=== PATIENT | male | born 1950 | race Caucasian/White ===

== ENCOUNTER 2017-02-02 12:13 | Emergency (ER) | payer BC, MEDICARE ==
[2017-02-02 12:24] VITALS: TEMP 97.8
--- NOTE | 2017-02-02 14:32 | C.PDOC ---
History Of Present Illness Patient is a 66 y/o male who presents to the ED with his with complaint of intermittent dizziness associated with nausea but no vomiting since last . Patient notes dizziness worsened upon awakening this morning, prompting ED visit. Patient admits to experiencing similar symptoms in the past ; patient has a PMHx of HTN, stroke, and NE and a PSHx of a cardiac stent. Patient notes dizziness is a sense of spinning and movement and worsens with head movement and bending over. Patient denies any abdominal pain, but admits patient was complaining of said pain. Patient has been eating and drinking normally. Denies any fever, URI symptoms, tinnitus, visual changes, CP , SOB, or palpitations. No other physical complaints at this time. Time Seen by Provider: 02/02/17 13:49 Chief Complaint (Nursing): Abdominal Pain History Per: Patient Onset/Duration Of Symptoms: Days (since last ) Current Symptoms Are (Timing): Still Present Associated Symptoms: Nausea. denies: Fever, Vomiting Exacerbating Factors: Movement (of head), Other (bending over) Recent travel outside of the [place]: No Past Medical History Reviewed: Historical Data, Nursing Documentation, Vital Signs Vital Signs: Last Vital Signs Temp 97.8 F 02/02/17 12:21 Pulse 58 L 02/02/17 15:20 Resp 18 02/02/17 15:20 BP 126/94 H 02/02/17 15:20 Pulse Ox 97 02/02/17 16:24 - Medical History PMH: CVA (stroke x3), HTN, Hyperlipidemia Denies: Diabetes Surgical History: Coronary Stent (Dr. Hines, in 2004.) Family History: States: No Known Family Hx - Social History Hx Alcohol Use: No Hx Substance Use: No - Immunization History Hx Tetanus Toxoid Vaccination: No Hx Influenza Vaccination: Yes Hx Pneumococcal Vaccination: No Review Of Systems Constitutional: Negative for: Fever, Chills Eyes: Negative for: Vision Change ENT: Negative for: Ear Pain Cardiovascular: Negative for: Chest Pain, Palpitations Respiratory: Negative for: Shortness of Breath Gastrointestinal: Positive for: Nausea. Negative for: Vomiting Neurological: Positive for: Dizziness Physical Exam - Physical Exam Appears: Well, Non-toxic, No Acute Distress Skin: Normal Color, Warm, Dry Head: Atraumatic, Normacephalic Oral Mucosa: Moist Chest: Symmetrical Cardiovascular: Rhythm Regular, No Murmur Respiratory: Normal Breath Sounds, No Rales, No Rhonchi, No Stridor Gastrointestinal/Abdominal: Soft, No Tenderness Neurological/Psych: Oriented x3, Normal Speech, Normal Cognition, Other (no focal deficits) ED Course And Treatment - Laboratory Results Result Diagrams: 02/02/17 15:30 02/02/17 15:30 Lab Interpretation: Normal ECG: Interpreted By Me ECG Rhythm: Sinus Rhythm (with occasional PVC) ECG Interpretation: No Acute Changes O2 Sat by Pulse Oximetry: 97 Pulse Ox Interpretation: Normal - CT Scan/US Head Other Rad Studies (CT/US): Interpreted By Me, Read By Radiologist CT/US Interpretation: IMPRESSION: No acute intracranial hemorrhage. Suspect minimal chronic white matter ischemic changes. Reevaluation Time: 16:50 Reassessment Condition: Improved (Patient asymptomatic at this time.) Medical Decision Making Medical Decision Making: Plan: Blood work EKG, and CT Head ordered; Antivert administered. Disposition Counseled Patient/Family Regarding: Studies Performed, Diagnosis, Need For Followup, Rx Given - Disposition Referrals: Gilbert Vuong MD [Staff Provider] - Disposition: HOME/ ROUTINE Disposition Time: 16:52 Condition: IMPROVED Prescriptions: Meclizine [Meclizine*] 25 mg PO TID PRN #14 tab PRN Reason: Dizziness Instructions: Vertigo (ED) Forms: [facility] (Yoruba) Print Language: UZBEK - Clinical Impression Clinical Impression: Vertigo - Scribe Statement The provider has reviewed the documentation as recorded by the Scribe Violeta Pizano All medical record entries made by the Scribe were at my direction and personally dictated by me. I have reviewed the chart and agree that the record accurately reflects my personal performance of the history, physical exam, medical decision making, and the department course for this patient. I have also personally directed, reviewed, and agree with the discharge instructions and disposition.
[2017-02-02 15:30] VITALS: BP 126/94; PULSE 58; RESP 18
[2017-02-02 15:38] LABS: BASO # 0.1 K/uL (0.0-0.2); BASO % 0.8 % (0.0-2.0); EOS # 0.3 K/uL (0.0-0.7); EOS % 3.7 % (0.0-4.0); HEMATOCRIT 44.6 % (35.0-51.0); LYMPH # 2.1 K/uL (1.0-4.3); LYMPH % 24.2 % (20.0-40.0); MEAN CELL VOLUME 91.2 fL (80.0-94.0); MONO # 0.7 K/uL (0.0-0.8); MONO % 7.8 % (0.0-10.0); NRBC % 0.1 % (0.0-2.0); RED CELL DISTRIBUTION WIDTH 13.2 % (11.5-14.5); WHITE BLOOD COUNT 8.7 K/uL (4.8-10.8)
[2017-02-02 15:47] LABS: CHLORIDE 101 mmol/L (98-107); POTASSIUM 4.1 mmol/L (3.6-5.2); SODIUM 135 mmol/L (132-148)
[2017-02-02 15:49] LABS: AST/SGOT 31 U/L (17-59); BILIRUBIN,TOTAL 0.6 mg/dL (0.2-1.3); CARBON DIOXIDE 23 mmol/L (22-30); GFR AFRICAN-AMERICAN > 60
[2017-02-02 15:50] LABS: ALB/GLOB RATIO 1.5 (1.0-2.1); ALKALINE PHOSPHATASE 52 U/L (38-126); ALT/SGPT 49 U/L (21-72); BLOOD UREA NITROGEN 19 mg/dL (9-20); CALCIUM 9.2 mg/dl (8.6-10.4); GLUCOSE,RANDOM 78 mg/dL (75-110); MAGNESIUM 1.8 mg/dL (1.6-2.3); TOTAL PROTEIN 7.5 g/dL (6.3-8.3)
--- NOTE | 2017-02-02 16:04 | CT ---
PROCEDURE: CT HEAD WITHOUT CONTRAST. HISTORY: R/O Bleed COMPARISON: Comparison made with prior CT scan of the brain dated 07/07/2015. TECHNIQUE: Axial computed tomography images were obtained through the head/brain without intravenous contrast. Radiation dose: Total exam DLP = 763.14 mGy-cm. This CT exam was performed using one or more of the following dose reduction techniques: Automated exposure control, adjustment of the mA and/or kV according to patient size, and/or use of iterative reconstruction technique. FINDINGS: HEMORRHAGE: No intracranial hemorrhage. BRAIN: Suspect minimal chronic periventricular white matter ischemic changes. Mild atrophy. VENTRICLES: No obstructive hydrocephalus. CALVARIUM: No acute calvarial fractures. PARANASAL SINUSES: Mild mucoperiosteal inflammatory changes seen within the ethmoid and frontal sinuses. Minimal mucosal thickening within the sphenoid sinus MASTOID AIR CELLS: Unremarkable as visualized. No inflammatory changes. OTHER FINDINGS: None. IMPRESSION: No acute intracranial hemorrhage. Suspect minimal chronic white matter ischemic changes. Mild atrophy.
[2017-02-02 16:24] VITALS: O2SAT 97
--- NOTE | 2017-02-04 12:47 | CARD ---
APPROVED REPORT EKG Measurement Heart [id number] <Conclusion> Sinus rhythm with occasional premature ventricular complexes Otherwise normal ECG
--- NOTE | 2017-02-04 12:47 | CARD ---
APPROVED REPORT EKG Measurement Heart [id number] ID [id number] <Conclusion> Normal sinus rhythm Normal ECG
== END 2017-02-02 17:11 | disposition home or self-care (01) ==
LOC: C.ER 12:13
DX: R42 Dizziness and giddiness (principal); E78.5 Hyperlipidemia, unspecified; I10 Essential (primary) hypertension; Z86.73 Personal history of transient ischemic attack (TIA), and cerebral infarction without residual deficits